=== PATIENT | male | born 1990 | race Two or more races ===

== ENCOUNTER 2024-04-06 14:47 | Inpatient (IN) | payer MEDICAID, OTHER ==
[~2024-04-06] VITALS: Ht 182.9 cm; Wt 117.7 kg
--- NOTE | 2024-04-06 15:50 | ED.PDOC ---
GI ASSESSMENT HPI Comments HPI: Poor Historian. 33-year-old male presents to the emergency department for evaluation of one-week history of rectal bleeding with normal stool color. Patient states this occurred after he ate some [place] soup. Patient states that the symptoms have been getting worse and now has abdominal pain. Patient complains of pain in his rectum with bowel movements with associated rectal bleeding. Patient then started developing nonspecific lower abdominal pain. Patient was on the toilet today and was having pain and as he was passing a bowel movement he has a syncopal episode without fall or trauma or injury. Patient has been feeling chills and cold. Patient was found with a fever here in the ED. Patient did not try any medications at home for his symptoms. This never happened before. Patient is otherwise healthy. Past Medcial History: Denies any Past Surgical History: Denies any REVIEW OF SYSTEMS: CONSTITUTIONAL: Denies acute: fever, diaphoresis, HEAD: Denies acute: headache, photophobia Eyes: Denies acute: Double vision, vision loss, eye pain, eye discharge. EARS: Denies acute: tinnitus, hearing loss, ear discharge, ear pain, THROAT: Denies acute: sore throat, swelling, difficulty swallowing , pain with swallowing, change in voice. NECK: Denies acute: neck pain, neck swelling, stiff neck. HEART: Denies acute : chest pain, palpitations, LUNGS: Denies acute: SOB, wheezing, cough, hemoptysis ABDOMEN: Denies acute: Nausea, Vomiting, diarrhea, melena , hematemesis, SKIN: Denies acute: rash, redness, lesions, itchiness. EXTREMITIES: Denies acute: calf pain, numbness, tingling, weakness, denies pain in extremity. Denies acute: Low back pain. Neuro: Denies acute: focal neurological deficit, motor or sensory focal neurological deficit, tremors, seizure like activity, confusion, dizziness, change in mental status, loss of bowel or bladder function, cauda equina like symptoms. : Denies acute: dysuria, hematuria, flank pain, increase in urinary frequency. PSYCH: Denies acute: hallucination, suicidal ideation, homicidal ideation. PHYSICAL EXAM: General: no acute distress, awake and alert. Head: normocephalic, atraumatic. Neck: supple, trachea is midline, no swelling. Throat: Normal phonation. Eyes:, no erythema, no purulent discharge, no proptosis, no icterus. Heart: regular tachycardic, no significant murmur appreciated. Lungs: no apparent respiratory distress, Able to speak in full sentences. No wheezing, no rhonchi, no crackles. No stridors Clear to auscultation bilaterally. Abdomen: Mild lower nonspecific abdominal tender to palpation, non distended, soft, no guarding, no rebound, + bowel sounds. Neuro: Awake, Alert, oriented to name, self, situation, follows commands GCS=15. Speech is normal. Skin: no petechia, no purpura, no cyanosis, non-pale, not jaundice. Lower extremities: --no - Pitting edema no deformity, no focal swelling, no calf TTP. Makes eye contact. moves all four extremities. Face: no apparent facial droop. Ambulating in the ED independently. Chief Complaint: GI Bleed Time Seen by MD: 15:21 Reviewed Notes: Nurses Notes, Medications, Allergies Allergies: Coded Allergies: NO KNOWN ALLERGIES (Unverified , 04/06/24) Home Meds Active Scripts Hydrocortisone Acetate (Anucort-Hc) 25 Mg Sup, 25 MG RE TID for 30 Days, #1 SUPP Prov:DON LEACH RESIDENT 04/09/24 Information Source: Patient Mode of Arrival: Ambulatory Was a procedure done? Was a procedure done?: No GI differential Dx Differential Diagnosis: Other (Diverticulitis, colitis, fistula, neoplasm, hemorrhoids, anal fissures, constipation, Crohn's disease, ulcerative colitis) X-Ray, Labs, Meds, VS Vital Signs Date Time Temp Pulse Resp B/P (MAP) Pulse Ox O2 Delivery O2 Flow Rate FiO2 04/06/24 20:32 100.1 04/06/24 20:23 104 17 96 Room Air* 0 21 04/06/24 20:23 100.1 104 17 126/68 (87) 96 100.1 04/06/24 15:39 101.0 121 21 109/81 (90) 96 Lab Test 04/06/24 15:54 Range/Units White Blood Count 12.5 H 4.4-10.8 10^3/uL Red Blood Count 5.21 4.5-5.90 10^6/uL Hemoglobin 15.5 13.5-17.5 g/dL Hematocrit 46.6 41.0-53.0 % Mean Corpuscular Volume 89.4 80.0-100.0 fL Mean Corpuscular Hemoglobin 29.7 28.0-32.0 pg Mean Corpuscular Hemoglobin Concent 33.2 32.0-36.0 g/dL Red Cell Distribution Width 13.4 11.8-14.3 % Platelet Count 269 140-450 10^3/uL Mean Platelet Volume 8.1 6.9-10.8 fL Neutrophils (%) (Auto) 83.5 H 37.0-80.0 % Lymphocytes (%) (Auto) 10.0 10.0-50.0 % Monocytes (%) (Auto) 4.9 0.0-12.0 % Eosinophils (%) (Auto) 1.3 0.0-7.0 % Basophils (%) (Auto) 0.3 0.0-2.0 % Neutrophils # (Auto) 10.4 H 1.6-8.6 10 ^3/uL Lymphocytes # (Auto) 1.2 0.4-5.4 10 ^3/uL Monocytes # (Auto) 0.6 0-1.3 10 ^3/uL Eosinophils # (Auto) 0.2 0-0.8 10 ^3/uL Basophils # (Auto) 0 0-0.2 10 ^3/uL Nucleated Red Blood Cells 0.2 % Sodium Level 138 136-145 mmol/L Potassium Level 3.9 3.5-5.1 mmol/L Chloride Level 108 H 98-107 mmol/L Carbon Dioxide Level 23 20-31 mmol/L Anion Gap 7 5-15 Blood Urea Nitrogen 10 9-23 mg/dL Creatinine 0.69 L 0.700-1.30 mg/dL Glomerular Filtration Rate Calc 125 >90 mL/min BUN/Creatinine Ratio 14.5 10.0-20.0 Serum Glucose 103 74-106 mg/dL Hemoglobin A1c 5.8 H <5.7 % A1C Lactic Acid Level 1.8 0.4-2.0 mmol/L Calcium Level 9.4 8.7-10.4 mg/dL Total Bilirubin 1.0 0.2-1.0 mg/dL Aspartate Amino Transferase (AST) 152 H 13-40 U/L Alanine Aminotransferase (ALT) 202 H 7-40 U/L Alkaline Phosphatase 157 H 46-116 U/L Troponin I High Sensitivity < 3 L </=54 ng/L Total Protein 7.4 5.7-8.2 g/dL Albumin 4.5 3.2-4.8 g/dL Lipase 24 12-53 U/L Thyroid Stimulating Hormone (TSH) 1.09 0.55-4.78 uIU/mL Hepatitis A Antibody Total Positive H Negative Hepatitis B Surface Antigen Negative Negative Hepatitis B Surface Antibody Positive H Negative Hepatitis B Core Total Antibody Negative Negative Hepatitis C Antibody Negative Negative Microbiology Date/Time Source Procedure Growth Status 04/06/24 15:54 Blood Blood Culture - Final NO GROWTH AFTER 5 DAYS OF INCUBATION. [facility] [address] [place] [address] Ph: [phone] DIAGNOSTIC IMAGING Diagnostic Imaging Report : [id number] Signed PATIENT: ROBERTO GAMBOA ACCT: [id number] UNIT: [id number] : 1990 LOC: ER ROOM / BED: / AGE / SEX: 33 / M ADM STATUS: REG ER SERVICE 1540 ORDERING PHYSICIAN: GAVINO RAE DO PROCEDURE(s): ABPL - CT AB PEL WO CON-NO ORAL OR IV REASON: fever/abd pain/rectal bleed ORDER NUMBER(s): [id number], ACCESSION NUMBER(s): [id number] Exam: CT CT AB PEL WO CON-NO ORAL OR IV History: fever/abd pain/rectal bleed Comparison Study: None Technique: Multidetector spiral CT of the abdomen and pelvis was performed from lung bases to pubic symphysis. Imaging was performed without IV contrast. Axial, coronal and sagittal multiplanar reformats were obtained from the axial data set by the technologist. Radiation dose : Abdomen/Pelvis: CTDIvol 23.87 mGy, DLP 1685.38 mGy*cm. Findings: Evaluation of solid organs is limited due to lack of intravenous contrast use. Lung Bases: No acute or significant lung base finding. Normal heart size. No pleural or pericardial effusion. Liver: The liver is normal in size. No focal lesions. Gallbladder and biliary Tree: Unremarkable Spleen: Unremarkable Pancreas: The pancreas is grossly normal in appearance. Adrenal Glands: Unremarkable Kidneys: Kidneys are grossly normal without calculi or hydronephrosis. Bladder: Grossly unremarkable for degree of distention. Bowel: The stomach is grossly normal in appearance. Small bowel and colon are normal in caliber and distribution. Normal appendix is visualized in the right lower quadrant without findings of appendicitis. Ascites: Absent Lymphadenopathy: No mesenteric, retroperitoneal or periportal lymphadenopathy. Abdominal wall and Mesentery: Unremarkable. Vasculature: The visualized abdominal aorta is normal in size and caliber. Evaluation of abdominal and pelvic vessels is limited due to lack of intravenous contrast. Pelvic Organs: Unremarkable Musculoskeletal: No aggressive focal bony lesions, acute fractures or dislocation. IMPRESSION: 1. No acute abdominal or pelvic findings. Radiation optimization: All CT scans at this facility use at least one of these dose optimization techniques: Automated exposure control mA and/or kV adjustment per patient size (includes targeted exams where dose is matched to clinical indication) or iterative reconstruction. HS:Y ATED BY: VICTOR M WHITE MD DICTATED DATE/TIME: 04/06/241636 SIGNED BY: VICTOR M WHITE MD SIGNED DATE/TIME: 04/06/241636 CC: [place] [address] Ph: [phone] DIAGNOSTIC IMAGING Diagnostic Imaging Report : [id number] Signed PATIENT: ROBERTO GAMBOA ACCT: [id number] UNIT: [id number] : 1990 LOC: OVERFLOW ROOM / BED: [address] [place] [address] / AGE / SEX: 33 / M ADM STATUS: ADM IN SERVICE 49 ORDERING PHYSICIAN: JAKE MORLEY RESIDENT PROCEDURE(s): CXRP - CHEST PORTABLE REASON: chest pain ORDER NUMBER(s): [id number], ACCESSION NUMBER(s): [id number] EXAM: XY CHEST PORTABLE CLINICAL HISTORY: chest pain TECHNIQUE: Single AP view of the chest WID: COMPARISON: None FINDINGS: Lines and tubes: None Chest: The heart size and pulmonary vasculature is within normal limits. No pleural effusion, pneumothorax, or consolidation. The osseous structures are grossly intact. IMPRESSION: No acute cardiopulmonary abnormality. ATED BY: BREANA GODOY MD DICTATED DATE/TIME: 04/07/24 0210 SIGNED BY: BREANA GODOY MD SIGNED DATE/TIME: 04/07/24 0210 CC: Time of 1ST Reevaluation: 17:00 Reevaluation 1ST: Unchanged Patient Education/Counseling: Diagnosis, Treatment Family Education/Counseling: No Family Present Comments Patient presented with the above HPI.--rectal bleeding----workup was initiated. patient was found with the above mentioned diagnosis. Patient was given: Fluids, Protonix, Flagyl, Tylenol Patient ED course and VS have been stabilized. Patient has been reassessed in the ED and remained in a stable condition. Pertinent incidental findings were discussed with the patient and/or family. Patient/family voices understanding and is agreeable with plan. Patient has been observed in the ED adequate length of time to insure improvement/stability. patient was admitted to the medicine team for further evaluation and treatment of their presentation. All the reports of any imaging studies that were ordered by myself were reviewed by myself. Departure 1 Departure Time of Disposition: 17:01 Impression: Primary Impression: Hematochezia Additional Impressions: Elevated LFTs Fever Disposition: ADMITTED INPATIENT Admit to: Tele Condition: Guarded e-Prescriptions Hydrocortisone Acetate (Anucort-Hc) 25 Mg Sup 25 MG RE TID for 30 Days, #1 SUPP Prov: DON LEACH RESIDENT 04/09/24 Discharged With: Self Critical Care Note Critical Care Time?: Yes (35 min-critical care time only) GAVINO RAE DO Apr 06, 2024 15:50
[2024-04-06 16:17] LABS: Hemoglobin 15.5 g/dL (13.5-17.5); Mean Corpuscular Hemoglobin 29.7 pg (28.0-32.0); Red Cell Distribution Width 13.4 % (11.8-14.3); White Blood Cell 12.5 10^3/uL (4.4-10.8)
[2024-04-06 16:25] LABS: Basophils # (auto) 0 10 ^3/uL (0-0.2); Basophils % (auto) 0.3 % (0.0-2.0); Eosinophils # (auto) 0.2 10 ^3/uL (0-0.8); Eosinophils % (auto) 1.3 % (0.0-7.0); Hematocrit 46.6 % (41.0-53.0); Lymphocytes # (auto) 1.2 10 ^3/uL (0.4-5.4); Mean Corpuscular Hgb Conc. 33.2 g/dL (32.0-36.0); Mean Corpuscular Volume 89.4 fL (80.0-100.0); Monocytes # (auto) 0.6 10 ^3/uL (0-1.3); Monocytes % (auto) 4.9 % (0.0-12.0); Neutrophils # (auto) 10.4 10 ^3/uL (1.6-8.6); Neutrophils % (auto) 83.5 % (37.0-80.0); Nucleated Red Blood Cells % 0.2 %; Platelet Count (auto) 269 10^3/uL (140-450); Red Blood Cells 5.21 10^6/uL (4.5-5.90)
[2024-04-06 16:34] LABS: Alanine Aminotransferase 202 U/L (7-40); Albumin 4.5 g/dL (3.2-4.8); Alkaline Phosphatase 157 U/L (46-116); Anion Gap 7 (5-15); Aspartate Aminotransferase 152 U/L (13-40); BUN/Creatinine Ratio 14.5 (10.0-20.0); Blood Urea Nitrogen 10 mg/dL (9-23); Calcium 9.4 mg/dL (8.7-10.4); Carbon Dioxide 23 mmol/L (20-31); Chloride 108 mmol/L (98-107); Glucose 103 mg/dL (74-106); Lipase 24 U/L (12-53); Potassium 3.9 mmol/L (3.5-5.1); Sodium 138 mmol/L (136-145); Total Protein 7.4 g/dL (5.7-8.2)
--- NOTE | 2024-04-06 16:39 | DVH ---
Exam: CT CT AB PEL WO CON-NO ORAL OR IV History: fever/abd pain/rectal bleed Comparison Study: None Technique: Multidetector spiral CT of the abdomen and pelvis was performed from lung bases to pubic symphysis. Imaging was performed without IV contrast. Axial, coronal and sagittal multiplanar reform ats were obtained from the axial data set by the technologist. Radiation dose : Abdomen/Pelvis: CTDIvol 23.87 mGy, DLP 1685.38 mGy*cm. Findings: Evaluation of solid organs is limited due to lack of intravenous contrast use. Lung Bases: No acute or significant lung base finding. Normal heart size. No pleural or pericardial effusion. Liver: The liver is normal in size. No focal lesions. Gallbladder and biliary Tree: Unremarkable Spleen: Unremarkable Pancreas: The pancreas is grossly normal in appearance. Adrenal Glands: Unremarkable Kidneys: Kidneys are grossly normal without calculi or hydronephrosis. Bladder: Grossly unremarkable for degree of distention. Bowel: The stomach is grossly normal in appearance. Small bowel and colon are normal in caliber and d istribution. Normal appendix is visualized in the right lower quadrant without findings of appendici tis. Ascites: Absent Lymphadenopathy: No mesenteric, retroperitoneal or periportal lymphadenopathy. Abdominal wall and Mesentery: Unremarkable. Vasculature: The visualized abdominal aorta is normal in size and caliber. Evaluation of abdominal a nd pelvic vessels is limited due to lack of intravenous contrast. Pelvic Organs: Unremarkable Musculoskeletal: No aggressive focal bony lesions, acute fractures or dislocation. IMPRESSION: 1. No acute abdominal or pelvic findings. Radiation optimization: All CT scans at this facility use at least one of these dose optimization lorene hniques: Automated exposure control mA and/or kV adjustment per patient size (includes targeted exams where dose is matched to clinical indication) or iterative reconstruction. HS:Y
[2024-04-06 20:23] VITALS: PULSE 104; RESP 17; O2SAT 96
[2024-04-06] MEDS: PANTOPRAZOLE 40 MG/10 ML VIAL INJ IV ONE (20:32)
[2024-04-06] MEDS: SODIUM CHLORIDE 0.9% 1,000 ML IV ONE (20:32)
[2024-04-06] MEDS: ACETAMINOPHEN 325 MG TAB PO ONE (20:32)
[2024-04-06] MEDS: metroNIDAZOLE 500MG/100ML 100 ML IV ONE (20:33)
[2024-04-06] MEDS ORDERED: NITROGLYCERIN 0.4 MG SL TAB SL PRN (21:30)
[2024-04-06] MEDS ORDERED: ACETAMINOPHEN 325 MG TAB PO PRN (21:30)
[2024-04-06] MEDS ORDERED: HYDROcodone-ACET 5/325MG TAB PO PRN (21:30)
[2024-04-06] MEDS ORDERED: MORPHINE SULFATE INJ 2 MG/ml SYRG IV PRN (21:30)
--- NOTE | 2024-04-06 21:37 | DVHHPRES ---
History of Present Illness Resident Creating Document: JKAE MORLEY RESIDENT History of Present Illness This is a 33 years old male with no significant past medical history presented to the ED with a chief complaint of abdominal pain, rectal bleeding and 1 episodes of passing out prior to this admission. According to the patient he was having right lower quadrant abdominal pain which is colicky in nature radiate to the left lower quadrant with no aggravating or relieving factors and associated with nausea. He also mentioned 1 episodes of bright red blood without mixing with the stool, anal pain and fainting due to the pain. He mentioned colon cancer runs in the family and he had the colonoscopy at 7 years of old but he did not remember about the findings. He denies chest pain, dizziness, shortness of breath, diaphoresis, nausea, vomiting or any change in bowel and bladder habit. Past Medical History No significant past medical history. Past Surgical History: None Family History Colon cancer runs in the family Past Social History Vapes, heavy drinker stopped 2 years ago and history of polysubstance abuse. Review of Systems Constitutional: No: Fever, Chills, Sweats, Weakness, Malaise, Other Eyes: No: Pain, Vision change, Conjunctivae inflammation, Eyelid inflammation, Other, Redness ENT: No: Ear pain, Ear discharge, Nose pain, Nose discharge, Nose congestion, Mouth pain, Mouth swelling, Throat pain, Throat swelling, Other Respiratory: No: Cough, Dry, Shortness of breath, SOB with excertion, Wheezing, Hemoptysis, Pleuritic Pain, Sputum, Wheezing, Other Cardiovascular: No: Chest Pain, Palpitations, Orthopnea, Paroxysmal Noc. Dyspnea, Edema, Lt Headedness, Other Gastrointestinal: Abdominal Pain, Hematochezia; No: Nausea, Vomiting, Diarrhea, Constipation, Melena, Other Genitourinary: No Dysuria, No Frequency, No Incontinence, No Hematuria, No Retention, No Other Musculoskeletal: No: other, neck pain, shoulder pain, arm pain, back pain, hand pain, leg pain, foot pain Skin: No: Rash, Lesions, Jaundice, Bruising, Other Neurological: No: Weakness, Numbness, Incoordination, Change in speech, Confusion, Seizures, Other Allergies: Coded Allergies: NO KNOWN ALLERGIES (Unverified , 04/06/24) Medications Current Medications Medications Dose Ordered Sig/Mike Route Start Time Stop Time Status Last Admin Dose Admin Sodium Chloride 10 ml Q8HR IV 04/06/24 22:00 UNV Sodium Chloride 1,000 ml @ 120 mls/hr Q8H20M IV 04/06/24 21:30 UNV Acetaminophen 325 mg Q4HP PRN PO 04/06/24 21:30 UNV Acetaminophen/ Hydrocodone Bitart 1 tab Q4HP PRN PO 04/06/24 21:30 UNV Nitroglycerin 0.4 mg Q5MINP PRN SL 04/06/24 21:30 UNV Morphine Sulfate 2 mg Q30M PRN IV 04/06/24 21:30 UNV Exam Vital Signs Vital Signs Date Time Temp Pulse Resp B/P (MAP) Pulse Ox O2 Delivery O2 Flow Rate FiO2 04/06/24 20:32 100.1 04/06/24 20:23 104 17 96 Room Air* 0 21 04/06/24 20:23 126/68 (87) General Appearance: Alert, Oriented X3, Cooperative, mild distress HEENT: Atraumatic, PERRLA, EOMI, Mucous membr. moist/pink Respiratory: Clear to auscultation, Normal air movement Cardiovascular: Regular rate, Normal S1, Normal S2, No murmurs Abdominal: Normal bowel sounds, Soft, No tenderness, No hepatospenomegaly, No masses Extremities: No clubbing, No cyanosis, No edema, Normal pulses, No tenderness/swelling Skin: No rashes, No breakdown, No significant lesion Neuro: Normal gait, Normal speech, Strength at 5/5 X4 ext, Normal tone, Sensation intact, Other (grossly intact cranial nerves) Psych/Mental Status: Mental status NL, Mood NL Labs/Xrays Labs Test 04/06/24 15:54 Range/Units White Blood Count 12.5 H 4.4-10.8 10^3/uL Red Blood Count 5.21 4.5-5.90 10^6/uL Hemoglobin 15.5 13.5-17.5 g/dL Hematocrit 46.6 41.0-53.0 % Mean Corpuscular Volume 89.4 80.0-100.0 fL Mean Corpuscular Hemoglobin 29.7 28.0-32.0 pg Mean Corpuscular Hemoglobin Concent 33.2 32.0-36.0 g/dL Red Cell Distribution Width 13.4 11.8-14.3 % Platelet Count 269 140-450 10^3/uL Mean Platelet Volume 8.1 6.9-10.8 fL Neutrophils (%) (Auto) 83.5 H 37.0-80.0 % Lymphocytes (%) (Auto) 10.0 10.0-50.0 % Monocytes (%) (Auto) 4.9 0.0-12.0 % Eosinophils (%) (Auto) 1.3 0.0-7.0 % Basophils (%) (Auto) 0.3 0.0-2.0 % Neutrophils # (Auto) 10.4 H 1.6-8.6 10 ^3/uL Lymphocytes # (Auto) 1.2 0.4-5.4 10 ^3/uL Monocytes # (Auto) 0.6 0-1.3 10 ^3/uL Eosinophils # (Auto) 0.2 0-0.8 10 ^3/uL Basophils # (Auto) 0 0-0.2 10 ^3/uL Nucleated Red Blood Cells 0.2 % Sodium Level 138 136-145 mmol/L Potassium Level 3.9 3.5-5.1 mmol/L Chloride Level 108 H 98-107 mmol/L Carbon Dioxide Level 23 20-31 mmol/L Anion Gap 7 5-15 Blood Urea Nitrogen 10 9-23 mg/dL Creatinine 0.69 L 0.700-1.30 mg/dL Glomerular Filtration Rate Calc 125 >90 mL/min BUN/Creatinine Ratio 14.5 10.0-20.0 Serum Glucose 103 74-106 mg/dL Lactic Acid Level 1.8 0.4-2.0 mmol/L Calcium Level 9.4 8.7-10.4 mg/dL Total Bilirubin 1.0 0.2-1.0 mg/dL Aspartate Amino Transferase (AST) 152 H 13-40 U/L Alanine Aminotransferase (ALT) 202 H 7-40 U/L Alkaline Phosphatase 157 H 46-116 U/L Troponin I High Sensitivity < 3 L </=54 ng/L Total Protein 7.4 5.7-8.2 g/dL Albumin 4.5 3.2-4.8 g/dL Lipase 24 12-53 U/L Assessment/Plan Assessment/Plan Assessment and plan: # Rectal bleeding, rule out colon cancer - Colon cancer runs in the family - H/H is stable now - Patient is on clear liquid diet - IV Protonix 40 mg b.i.d. - Pending D/R/E - IV normal saline at 120 mL/hour - Ordered CEA and consulted GI # Possible colitis - CBC revealed leukocytosis with left shift - CT abdomen pelvis demonstrated no acute intra-abdominal condition. - Started IV ceftriaxone 1 g daily and IV metronidazole 500 mg 8 hourly # Transaminitis without hyperbilirubinemia likely due to alcohol abuse - Monitor CMP # Prediabetes, hemoglobin A1c 5.8 - consult patient regarding healthy low carb diet, lifestyle modification and physical exercise Goal of care discussed with the patient for more than 23 minutes full code Plan of treatment discussed with Dr. Lira Plan discussed with: Patient, Other My Orders Orders - JAKE MORLEY RESIDENT Procedure Category Date Status Time Admit ADMIT 04/06/24 Transmitted 21:17 Allergies AMAN 04/06/24 In Process 21:17 Code Status CODE 04/06/24 Transmitted 21:17 Sodium Chloride Lock PHA 04/06/24 Logged (Saline Lock Ns) 22:00 Sodium Chloride 0.9% PHA 04/06/24 Logged 21:30 Acetaminophen Tablet PHA 04/06/24 Logged (Tylenol Tablet) 21:30 Hydrocodone-Acet PHA 04/06/24 Logged 5/325mg Tab ([place] 21:30 Complete Blood Count LAB 04/07/24 Verified 04:00 Comprehensive LAB 04/07/24 Verified Metabolic Panel 04:00 Npo (Nothing By DIET 04/07/24 Transmitted Mouth) Diet Breakfast Nitroglycerin PHA 04/06/24 Logged Sublingual (Ntrostat 21:30 Morphine Sulfate PHA 04/06/24 Logged Injection 21:30 Oxygen By Nasal RT 04/06/24 Transmitted Cannula 21:17 Stat Ekg For Chest AMAN 04/06/24 In Process Pain 21:17 Notify Md Of Changes AMAN 04/06/24 In Process From Base 21:17 Apron Man For AMAN 04/06/24 In Process 24 Hours 21:17 Emergency Dysrhythmia AMAN 04/06/24 In Process Protocol 21:17 Rhythm Strips Once AMAN 04/06/24 In Process Every Shift 21:17 Comprehensive LAB 04/06/24 In Process Hepatitis Panel 21:17 Drug Screen LAB 04/06/24 Logged 21:17 Hemoglobin A1c LAB 04/06/24 In Process 21:17 Thyroid Stimulating LAB 04/06/24 In Process Hormone 21:17 * Gi Dvh Production Sampler CONS 04/06/24 Transmitted 21:17 PTPTT LAB 04/06/24 Verified 21:32 Pantoprazole PHA 04/06/24 Verified (Protonix) 22:00 Urinalysis LAB 04/06/24 Verified 21:32 Date of Service: Apr 06, 2024 Billing Provider: DEISY LIRA MD Common Visit Codes: 75470-[id number] INP/OBS CARE (HIGH) JAKE MORLEY RESIDENT Apr 06, 2024 21:37 DEISY LIRA MD Apr 07, 2024 15:52
[2024-04-06] MEDS: SODIUM CHLOR 0.9% PF (SALINE LOCK) 10ML VIAL/SYR IV SCH (22:00)
[2024-04-06 22:19] LABS: INR 1.12 (0.9-1.15); Partial Thromboplastin Time 27.9 SEC (24.5-34.5); Prothrombin Time 11.8 sec (9.3-11.8)
[2024-04-06] MEDS: SODIUM CHLORIDE 0.9% 1,000 ML IV SCH (23:41)
[2024-04-07] VITALS (7 sets, daily range): BP systolic 97–123; BP diastolic 51–79; PULSE 60–95; RESP 18–19; TEMP 98–99.1; O2SAT 90–97
[2024-04-07] MEDS: ONDANSETRON HCL 4 MG/2 ML VIAL IV PRN (00:26)
[2024-04-07] MEDS: MORPHINE SULFATE INJ 2 MG/ml SYRG IV PRN (00:27)
[2024-04-07 01:13] LABS: Urine Bacteria None Seen /hpf (None Seen)
[2024-04-07] MEDS ORDERED: metroNIDAZOLE 500MG/100ML 100 ML IV ONE (01:45)
[2024-04-07] MEDS: cefTRIAXone 1GM/50ML D5W 50 ML IV ONE (01:54)
[2024-04-07 01:59] LABS: Amphetamine Screen, Urine Neg (NEGATIVE); Barbiturate Scree,Urine Neg (NEGATIVE); Benzodiazephine Screen, Urine Neg (NEGATIVE); Cannabinoid Screen, Urine Neg (NEGATIVE); Cocaine Screen, Urine Neg (NEGATIVE); Opiate Scree,Urine Neg (NEGATIVE); Phencyclidine Screen, Urine Neg (NEGATIVE)
--- NOTE | 2024-04-07 02:12 | DVH ---
EXAM: XY CHEST PORTABLE CLINICAL HISTORY: chest pain TECHNIQUE: Single AP view of the chest WID: COMPARISON: None FINDINGS: Lines and tubes: None Chest: The heart size and pulmonary vasculature is within normal limits. No pleural effusion, pneumothorax, or consolidation. The osseous structures are grossly intact. IMPRESSION: No acute cardiopulmonary abnormality.
[2024-04-07 02:19] LABS: Urine Blood Negative /uL (Negative); Urine Clarity Turbid (Clear); Urine Color Yellow (Yellow); Urine Mucus MANY (None Seen); Urine Protein, UAD TRACE (Negative); Urine Specific Gravity 1.027 (1.001-1.035); Urine Urobilinogen 2 mg/dL (Negative); Urine WBC 4 /hpf (0 - 3)
[2024-04-07] MEDS: metroNIDAZOLE 500MG/100ML 100 ML IV SCH (05:49)
[2024-04-07 07:06] LABS: Basophils # (auto) 0 10 ^3/uL (0-0.2); Basophils % (auto) 0.4 % (0.0-2.0); Eosinophils # (auto) 0.1 10 ^3/uL (0-0.8); Eosinophils % (auto) 1.3 % (0.0-7.0); Hematocrit 39.8 % (41.0-53.0); Hemoglobin 13.7 g/dL (13.5-17.5); Lymphocytes % (auto) 13.6 % (10.0-50.0); Mean Corpuscular Hemoglobin 30.5 pg (28.0-32.0); Mean Corpuscular Hgb Conc. 34.3 g/dL (32.0-36.0); Mean Corpuscular Volume 89.1 fL (80.0-100.0); Monocytes # (auto) 0.6 10 ^3/uL (0-1.3); Monocytes % (auto) 7.3 % (0.0-12.0); Neutrophils # (auto) 5.9 10 ^3/uL (1.6-8.6); Neutrophils % (auto) 77.4 % (37.0-80.0); Platelet Count (auto) 220 10^3/uL (140-450); Red Blood Cells 4.47 10^6/uL (4.5-5.90); Red Cell Distribution Width 13.4 % (11.8-14.3); White Blood Cell 7.7 10^3/uL (4.4-10.8)
[2024-04-07 07:34] LABS: Alanine Aminotransferase 147 U/L (7-40); Albumin 3.8 g/dL (3.2-4.8); Alkaline Phosphatase 125 U/L (46-116); Anion Gap 7 (5-15); Aspartate Aminotransferase 102 U/L (13-40); BUN/Creatinine Ratio 14.3 (10.0-20.0); Blood Urea Nitrogen 10 mg/dL (9-23); Calcium 8.9 mg/dL (8.7-10.4); Carbon Dioxide 24 mmol/L (20-31); Chloride 107 mmol/L (98-107); Glucose 106 mg/dL (74-106); Potassium 3.6 mmol/L (3.5-5.1); Sodium 138 mmol/L (136-145)
[2024-04-07 07:35] LABS: Bilirubin, Total 1.2 mg/dL (0.2-1.0); Total Protein 6.6 g/dL (5.7-8.2)
[2024-04-07] MEDS: PANTOPRAZOLE 40 MG/10 ML VIAL INJ IV SCH (09:33)
[2024-04-07] MEDS: SODIUM CHLORIDE 0.9% 500 ML IV ONE (10:30)
[2024-04-07] MEDS: cefTRIAXone 1GM/50ML D5W 50 ML IV SCH (11:13)
[2024-04-07] MEDS: POTASSIUM EFFERVESENT TAB 25 MEQ PO ONE (11:14)
--- NOTE | 2024-04-07 11:30 | DVHPNRES ---
Progress Note Date Seen: Apr 07, 2024 Resident Creating Document: DON LEACH RESIDENT Medical Necessity Reason Pt with a Central, PICC or Fol: No Subjective Review of Systems This is a 33-year-old male patient with no reported past medical history who presented to the ER with a chief complaint of abdominal pain and rectal bleeding for the past 1.5 weeks. Patient reports right lower quadrant abdominal pain and burning which with the age to the back, is on and off and ongoing for the past 10 days associated with dyschezia/fever/chills/sweats/shaking/lightheadedness. He also says that he has been experiencing fresh red bleeding per rectum for around the past week, every time he goes to the bathroom. He has a bowel movement once every day which is formed, not loose. Reports blood in the bowel movements during the start and time-out. Denies melena/nausea/vomiting/weight loss/loss of appetite. Last reported bowel movement was around 8:00 a.m. 04/06, which was also full of fresh blood. Patient also reported that he experienced loss of consciousness for about a minute or 04/06 when he was undergoing a bowel movement, denies hitting his head or experiencing any falls. He had a colonoscopy at the age of 7 years which showed some polyps but he does not remember the details. Patient has not seen a physician since 2007 Past medical and surgical history: Unremarkable Family history Colon cancer in his brother at the age of 31 year, colon cancer also in his uncle Allergic history None Social history Ex-smoker, quit 4 months back-smoked a pack a day for the past 10 years. Currently patient vapes. Reports being a heavy drinker, has been sober for the past 2 years Reports substance use back in 2007 Lives with Does not have a PCP. Patient seen and examined at bedside. Seen having clear liquid diet. Rectal exam performed, patient had lot of tenderness, no hemorrhoids seen or felt, no active bleeding. No masses or prostatomegaly. GI consulted, colonoscopy scheduled for tomorrow. Objective vital signs Vital Sign Date Time Temp Pulse Resp B/P (MAP) Pulse Ox O2 Delivery O2 Flow Rate FiO2 04/07/24 08:46 98.6 94 19 99/60 (73) 96 98.6 04/07/24 08:12 Room Air* 0 21 Total Intake and Output 1004/06/24 04/07/24 15:00 23:00 07:00 Intake Total 1100 ml 1120 ml Output Total 680 ml Balance 1100 ml 440 ml medications Current Medications Medications Dose Ordered Sig/Mike Route Start Time Stop Time Status Last Admin Dose Admin Sodium Chloride 10 ml Q8HR IV 04/06/24 22:00 04/07/24 05:49 10 ML Acetaminophen 325 mg Q4HP PRN PO 04/06/24 21:30 Acetaminophen/ Hydrocodone Bitart 1 tab Q4HP PRN PO 04/06/24 21:30 Pantoprazole Sodium 40 mg BID IV 04/07/24 10:00 04/07/24 09:33 40 MG Morphine Sulfate 1 mg Q4HP PRN IV 04/07/24 00:15 04/07/24 00:27 1 MG Ondansetron HCl 4 mg Q8HPRN PRN IV 04/07/24 00:15 04/07/24 00:26 4 MG Metronidazole 100 ml @ 100 mls/hr Q8HR IV 04/07/24 06:00 04/07/24 05:49 100 MLS/HR Ceftriaxone Sodium 50 ml @ 100 mls/hr DAILY IV 04/07/24 10:00 04/07/24 11:13 100 MLS/HR Examination Young obese male patient lying in bed, in no acute distress General: Obese, afebrile, palor, mucosae are moist Cardiovascular: Regular S1 and S2. No murmurs, gallops or rubs. No JVD elevation. No pedal edema Respiratory: Normal B/L air entry on room air. Clear lung sounds on auscultation Abdomen: Soft, nontender, nondistended, normoactive bowel sounds, no rebound tenderness, no organomegaly, no masses. Buttocks punctate erythematous points. Rectal exam performed, patient had lot of tenderness, no hemorrhoids seen or felt, no active bleeding. No masses or prostatomegaly. Genitourinary: Deferred MSK/skin: Mobilizes 4 limbs. Skin is dry and warm Neurological: No motor, no sensitive deficits, normal speech. Pupils are isocoric and reactive. Psych/Mental Status: A/Ox4 laboratory and microbiology Laboratory Tests 04/07/24 06:20 Test 04/07/24 06:20 Range/Units Serum Glucose 106 74-106 mg/dL Labs and/or images reviewed: Labs reviewed by me, Image(s) reviewed by me Problem List/Assessment/Plan Problem List/Assessment/Plan Sepsis secondary to Hematochezia ? Rule out diverticulitis versus mass First-degree relative has colon cancer at the age of 30s Rectal exam performed, patient had lot of tenderness, no hemorrhoids seen or felt, no active bleeding. No masses or prostatomegaly. GI consulted - scheduled for colonoscopy 04/08/2024, currently on bowel prep IV ceftriaxone and metronidazole starting 04/07 IV Protonix 40 mg b.i.d., clear liquid diet CEA level pending, stool occult positive Lactic acid 1.8 Prelim blood culture negative for growth CT abdomen completed, shows no acute abdominal or pelvic finding Presyncope Head CT unremarkable for acute intracranial process Orthostatic vital pending Transaminitis secondary to hepatic steatosis - history of heavy alcohol use AST/AST trending down Prediabetes - hemoglobin A1c 5.8 Counseled regarding healthy lifestyle habits for more than 22 minutes. Vitamin-D deficiency Supplemented Chronic alcoholic and nicotine dependence Counseled regarding cessation of vaping and continuing alcoholic cessation for more than 20 minutes History of polysubstance use Counseled regarding cessation for more than 20 minute Plan discussed with patient, in which all questions have been answered Goals of care discussed for more than 25 minutes, full code status. Case discussed with Dr. Lira. Colonoscopy scheduled for tomorrow. Continue bowel prep. Plan discussed with: Patient My Orders My Orders Orders - DON LEACH Procedure Category Date Status Time Ceftriaxone 1gm/50ml PHA 04/07/24 In Process D5w (Rocephin) 10:00 Covid19 Antigen [facility] 04/07/24 Logged Vitamin D, 25-Hydroxy LAB 04/07/24 In Process 09:52 Stool [facility] 04/07/24 Logged 10:21 Date of Service: Apr 07, 2024 Billing Provider: DEISY LIRA MD Common Visit Codes: [id number] INP/OBS CARE(HIGH) DON LEACH Apr 07, 2024 11:30 DEISY LIRA MD Apr 08, 2024 09:38
--- NOTE | 2024-04-07 11:40 | DVH ---
EXAM: CT HEAD WITHOUT CONTRAST HISTORY: syncope COMPARISON: None TECHNIQUE: Axial images were obtained and reformatted in coronal and sagittal planes. All CT scans at this medical facility are performed using dose modulation techniques as appropriate t o a performed exam including the following: Automated exposure control was utilized; adjustment of th e MA and/or KV according to patient size; and use of iterative reconstruction technique. CT Dose: CTDI volume is 63.24 mGy. Dose-length product is 1139.96 mGy*cm FINDINGS: There is no evidence of acute intracranial hemorrhage, mass, mass effect midline shift. There is no h ydrocephalus or extra-axial fluid collection. Dow white matter diffeerentiation appears appropriate. The visualized paranasal sinuses and mastoid air cells are clear. The calvarium is intact. IMPRESSION: 1. No acute intracranial process. HS:Y
[2024-04-07] MEDS: GOLYTELY 4L KIT PO ONE (12:15)
--- NOTE | 2024-04-07 12:23 | DVHINCON2 ---
GI Consult Consult Note GI consult note Date of Consultation: 04/07/2024 Chief Complaint: Rectal bleeding Referring Physician: Horacio LOUIS H&P: 33-year-old male admitted with red blood rectally with bowel movements for two weeks, patient has brown stool. Patient complaining of lower right side abdominal pain before bowel movement. Also has rectal pain with bowel movement. Patient's symptoms worsened one day after eating [place] food . no weight loss. No nausea or vomiting . No colonoscopy in past Patient has family history of colon cancer, brother diagnosed with colon cancer at age 31 Past Medical History: Denies Past Surgical History: Denies Social History: Ex-smoker, quit 4 months back-smoked a pack a day for the past 10 years. Currently patient vapes. Reports being a heavy drinker, has been sober for the past 2 years Reports substance use back in 2007 Lives with Family History: Brother: Cancer Review of Systems: Constitutional: no fever, chill, weight loss HEENT: no eye pain, no hearing loss, no oral lesion, no scleral icterus Heart: no chest pain, no chest pressure Lung: no cough, no dyspnea with exertion Abdomen: see HPI Physical exam: General: NAD, AAOX3 Chest: lung stewart clear to auscultation Heart: RRR, no murmur Abdomen: non-distended, no tenderness to palpation, +BS Labs: Labs Test 04/07/24 10:24 04/07/24 06:20 04/07/24 01:12 04/06/24 21:44 Range/Units Stool Occult Blood Positive Negative Stool Occult Blood Sample #3 Negative White Blood Count 7.7 # 4.4-10.8 10^3/uL Red Blood Count 4.47 L 4.5-5.90 10^6/uL Hemoglobin 13.7 13.5-17.5 g/dL Hematocrit 39.8 #L 41.0-53.0 % Mean Corpuscular Volume 89.1 80.0-100.0 fL Mean Corpuscular Hemoglobin 30.5 28.0-32.0 pg Mean Corpuscular Hemoglobin Concent 34.3 32.0-36.0 g/dL Red Cell Distribution Width 13.4 11.8-14.3 % Platelet Count 220 140-450 10^3/uL Mean Platelet Volume 7.9 6.9-10.8 fL Neutrophils (%) (Auto) 77.4 37.0-80.0 % Lymphocytes (%) (Auto) 13.6 10.0-50.0 % Monocytes (%) (Auto) 7.3 0.0-12.0 % Eosinophils (%) (Auto) 1.3 0.0-7.0 % Basophils (%) (Auto) 0.4 0.0-2.0 % Neutrophils # (Auto) 5.9 1.6-8.6 10 ^3/uL Lymphocytes # (Auto) 1.0 0.4-5.4 10 ^3/uL Monocytes # (Auto) 0.6 0-1.3 10 ^3/uL Eosinophils # (Auto) 0.1 0-0.8 10 ^3/uL Basophils # (Auto) 0 0-0.2 10 ^3/uL Nucleated Red Blood Cells 0.0 % Sodium Level 138 136-145 mmol/L Potassium Level 3.6 3.5-5.1 mmol/L Chloride Level 107 98-107 mmol/L Carbon Dioxide Level 24 20-31 mmol/L Anion Gap 7 5-15 Blood Urea Nitrogen 10 9-23 mg/dL Creatinine 0.70 0.700-1.30 mg/dL Glomerular Filtration Rate Calc 125 >90 mL/min BUN/Creatinine Ratio 14.3 10.0-20.0 Serum Glucose 106 74-106 mg/dL Calcium Level 8.9 8.7-10.4 mg/dL Magnesium Level 1.9 1.6-2.6 mg/dL Total Bilirubin 1.2 H 0.2-1.0 mg/dL Aspartate Amino Transferase (AST) 102 H 13-40 U/L Alanine Aminotransferase (ALT) 147 H 7-40 U/L Alkaline Phosphatase 125 H 46-116 U/L Total Protein 6.6 5.7-8.2 g/dL Albumin 3.8 3.2-4.8 g/dL Carcinoembryonic Antigen < 0.50 <=5.0 ng/mL Vitamin B12 Level 461 211-911 pg/mL HIV (1&2) Antibody Negative Negative Urine Color Yellow Yellow Urine Clarity Turbid H Clear Urine pH 6.0 5.0-9.0 Urine Specific [place] 1.027 1.001-1.035 Urine Protein Trace H Negative Urine Ketones Negative Negative Urine Blood Negative Negative /uL Urine Nitrite Negative Negative Urine Bilirubin Negative Negative Urine Urobilinogen 2 H Negative mg/dL Urine Leukocyte Esterase Negative Negative /uL Urine RBC 1 0 - 3 /hpf Urine WBC 4 0 - 3 /hpf Urine Squamous Epithelial Cells None seen <5 /hpf Urine Bacteria None seen None Seen /hpf Urine Mucus Many None Seen Urine Glucose Normal Normal mg/dL Urine Opiates Screen Neg NEGATIVE Urine Fentanyl Screen Neg NEGATIVE Urine Barbiturates Screen Neg NEGATIVE Urine Phencyclidine Screen Neg NEGATIVE Urine Amphetamines Screen Neg NEGATIVE Urine Benzodiazepines Screen Neg NEGATIVE Urine Cocaine Screen Neg NEGATIVE Urine Cannabinoids Screen Neg NEGATIVE Prothrombin Time 11.8 9.3-11.8 sec Prothrombin Time INR 1.12 0.9-1.15 Activated Partial Thromboplast Time 27.9 24.5-34.5 SEC Test 04/06/24 15:54 Range/Units Hemoglobin A1c 5.8 H <5.7 % A1C Lactic Acid Level 1.8 0.4-2.0 mmol/L Troponin I High Sensitivity < 3 L </=54 ng/L Lipase 24 12-53 U/L Thyroid Stimulating Hormone (TSH) 1.09 0.55-4.78 uIU/mL Imaging: CT abdomen pelvis IMPRESSION: 1. No acute abdominal or pelvic findings. Assessment: GI bleed Elevated LFTs History heavy alcohol Plan: Discussed with Dr. Hurst - Pt will be scheduled for colonoscopy tomorrow 04/08/2024. Pt was informed of the risks (bleeding, infection, perforation, reaction to sedation medications and cardiopulmonary arrest) and benefit and is agreeable to undergo the procedures. Hepatitis panel pending Monitor labs Abdominal ultrasound pending Discussed plan with patient and RN Thank you for this consult Date of Service: Apr 07, 2024 Billing Provider: ROSEANNA SERRA Common Visit Codes: CONSULT ONLY Consultation Codes: [id number] CONSULT <60MIN ROSEANNA SERRA Apr 07, 2024 12:23
--- NOTE | 2024-04-07 13:48 | DVH ---
EXAM: US GALLBLADDER CLINICAL HISTORY: transaminitis TECHNIQUE: Grayscale and limited color flow doppler ultrasound of the right upper quadrant is perfor med. COMPARISON: None Findings: Liver measures 19.7 cm in length with increased echotexture and contour. No evidence of focal hepatic lesions or intra- or extrahepatic ductal dilatation. Common bile duct not visualized. Normal hepatop edal flow noted within the portal vein. No perihepatic free fluid is noted. Gallbladder appears within normal limits with gallbladder wall thickness measuring 0.2 cm. No evidenc e of shadowing calculi, biliary sludge or pericholecystic fluid. Negative sonographic Gleason's sign. Pancreas not well-visualized due to overlying bowel gas. Right kidney measures 12.2 cm with normal contours, echotexture and cortical thickness. No evidence o f hydronephrosis, calculi, cystic or solid renal lesions. Partially visualized inferior vena cava unremarkable. Impression: 1. No evidence of acute right upper quadrant abnormalities. 2. Hepatomegaly with hepatic steatosis. 3. Common bile duct and pancreas not well visualized.
[2024-04-07 14:39] LABS: Hepatitis B Core Total AB Negative (Negative)
[2024-04-07 15:57] LABS: Hepatitis A Total Antibody Positive (Negative)
[2024-04-07 15:58] LABS: Hepatitis B Surface Antibody Positive (Negative); Hepatitis B Surface Antigen Negative (Negative); Hepatitis C Antibody Negative (Negative)
[2024-04-07] MEDS ORDERED: cefTRIAXone 1GM/50ML D5W 50 ML IV SCH (21:00)
[2024-04-08] VITALS (7 sets, daily range): BP systolic 103–128; BP diastolic 54–79; PULSE 75–100; RESP 18–24; TEMP 37.2; O2SAT 92–99
[2024-04-08] MEDS: MAGNESIUM CITRATE SOLUTION 300 ML BTL PO ONE (05:29)
[2024-04-08] MEDS ORDERED: GOLYTELY 4L KIT PO ONE (06:00)
[2024-04-08 06:02] LABS: Basophils # (auto) 0 10 ^3/uL (0-0.2); Basophils % (auto) 0.5 % (0.0-2.0); Eosinophils # (auto) 0.2 10 ^3/uL (0-0.8); Eosinophils % (auto) 3.5 % (0.0-7.0); Hematocrit 41.9 % (41.0-53.0); Hemoglobin 14.3 g/dL (13.5-17.5); Lymphocytes # (auto) 1.5 10 ^3/uL (0.4-5.4); Lymphocytes % (auto) 22.9 % (10.0-50.0); Mean Corpuscular Hemoglobin 30.4 pg (28.0-32.0); Mean Corpuscular Hgb Conc. 34.1 g/dL (32.0-36.0); Mean Corpuscular Volume 89.3 fL (80.0-100.0); Monocytes # (auto) 0.5 10 ^3/uL (0-1.3); Monocytes % (auto) 7.9 % (0.0-12.0); Neutrophils # (auto) 4.3 10 ^3/uL (1.6-8.6); Neutrophils % (auto) 65.2 % (37.0-80.0); Nucleated Red Blood Cells % 0.1 %; Platelet Count (auto) 210 10^3/uL (140-450); Red Blood Cells 4.69 10^6/uL (4.5-5.90); Red Cell Distribution Width 13.1 % (11.8-14.3); White Blood Cell 6.6 10^3/uL (4.4-10.8)
[2024-04-08 06:09] LABS: Calcium 9.3 mg/dL (8.7-10.4); Chloride 109 mmol/L (98-107); Potassium 3.7 mmol/L (3.5-5.1); Sodium 139 mmol/L (136-145)
[2024-04-08 06:10] LABS: Anion Gap 5 (5-15); Carbon Dioxide 25 mmol/L (20-31)
[2024-04-08 06:15] LABS: Blood Urea Nitrogen 7 mg/dL (9-23); Glucose 108 mg/dL (74-106)
[2024-04-08] MEDS ORDERED: ERGOCALCIFEROL 50,000 UNIT(1.25MG) CAP PO SCH (10:15)
[2024-04-08] MEDS ORDERED: fentaNYL CITRATE 100 MCG/2 ML VL ONE (13:30)
[2024-04-08] MEDS ORDERED: MIDAZOLAM HCL 2MG/2ML 2ml VIAL (1mg/ml) ONE (13:30)
[2024-04-08] MEDS ORDERED: MEPERIDINE HCL (25 MG/ML) 1ML VIAL ONE (13:30)
[2024-04-08] MEDS ORDERED: DexAMETHasone SOD PHOS 10MG/1ML VIAL INJ ONE (13:38)
--- NOTE | 2024-04-08 13:58 | DVHOP2 ---
Operative Report DATE OF OPERATION: 04/08/24 PROCEDURE: Colonoscopy with snare polypectomy. PREOPERATIVE INDICATION: The patient is a 33 -year-old male undergoing colonoscopy for evaluation of rectal bleeding POSTOPERATIVE DIAGNOSES: 1. Patient had 1+ internal hemorrhoids with some superficial oozing noted 2. There was a 2 mm benign-appearing rectal polyp that was seen and removed by cold biopsy forceps 3. There was a 3-4 mm benign-appearing descending colon polyp that was seen and removed by snare polypectomy 4. Otherwise essentially completely normal colonoscopy examination up to the cecum and terminal ileum with no active bleeding at this time PROCEDURE PERFORMED BY: Guillermo Hurst M.D. SCOPE: Olympus videocolonoscope. ASA CLASS: 2. PREOPERATIVE MEDICATIONS: Dr.Kakkes Sara PROCEDURE IN DETAIL: After obtaining an informed consent, the patient was placed on left lateral decubitus position. He was then sedated with the above medications. A rectal examination was performed that was normal. The colonoscope was then passed through the anus into the rectosigmoid and through the descending, transverse, and ascending colon up to the cecum with visualization of the appendiceal orifice, base of the cecum and the ileocecal valve. The colonoscope was then withdrawn. No masses or colitis was noted Patient had a two 3-4 mm benign-appearing descending colon polyp that was seen and removed by snare polypectomy Patient had mild scattered diverticular disease most prominent in the sigmoid Patient had a 2 mm benign-appearing rectal polyp that was seen and removed via cold biopsy forceps On retroflexion he had 1+ internal hemorrhoids with some superficial oozing The patient tolerated the procedure well without difficulty. WITHDRAWAL TIME: 9 minutes QUALITY OF THE PREP: [place] Bowel Prep score: 9. COMPLICATIONS : None SPECIMENS: Descending colon polyp Rectal polyp DISPOSITION: Transfer back to the floor Stable PLAN: 1. Repeat colonoscopy base on biopsy result likely in 3-5 years 2. Resume GI soft diet advance as tolerated 3. Increase fluid and fiber intake 4. Local anorectal hemorrhoidal care try Anusol hemorrhoidal suppositories 5. Outpatient follow up with me in 2-4 weeks to review results and discuss further management GUILLERMO HURST MD Apr 08, 2024 13:58
[2024-04-08] MEDS ORDERED: PROPOFOL 10 MG/ML 20 ML IV ONE (14:28)
[2024-04-08] MEDS ORDERED: HYDR25SU13 RE (17:17)
--- NOTE | 2024-04-08 17:26 | DVHDSRES ---
Discharge Summary Date of Admission Resident Creating Document: DON LEACH RESIDENT Apr 06, 2024 at 21:17 Date of Discharge: Apr 08, 2024 Admitting Diagnosis Hematochezia Labs/Diagnostic Data: Laboratory Results Test 04/08/24 05:29 04/07/24 10:24 04/07/24 06:20 04/07/24 01:12 White Blood Count 6.6 10^3/uL (4.4-10.8) Red Blood Count 4.69 10^6/uL (4.5-5.90) Hemoglobin 14.3 g/dL (13.5-17.5) Hematocrit 41.9 % (41.0-53.0) Mean Corpuscular Volume 89.3 fL (80.0-100.0) Mean Corpuscular Hemoglobin 30.4 pg (28.0-32.0) Mean Corpuscular Hemoglobin Concent 34.1 g/dL (32.0-36.0) Red Cell Distribution Width 13.1 % (11.8-14.3) Platelet Count 210 10^3/uL (140-450) Mean Platelet Volume 7.7 fL (6.9-10.8) Neutrophils (%) (Auto) 65.2 % (37.0-80.0) Lymphocytes (%) (Auto) 22.9 % (10.0-50.0) Monocytes (%) (Auto) 7.9 % (0.0-12.0) Eosinophils (%) (Auto) 3.5 % (0.0-7.0) Basophils (%) (Auto) 0.5 % (0.0-2.0) Neutrophils # (Auto) 4.3 10 ^3/uL (1.6-8.6) Lymphocytes # (Auto) 1.5 10 ^3/uL (0.4-5.4) Monocytes # (Auto) 0.5 10 ^3/uL (0-1.3) Eosinophils # (Auto) 0.2 10 ^3/uL (0-0.8) Basophils # (Auto) 0 10 ^3/uL (0-0.2) Nucleated Red Blood Cells 0.1 % Sodium Level 139 mmol/L (136-145) Potassium Level 3.7 mmol/L (3.5-5.1) Chloride Level 109 mmol/L (98-107) Carbon Dioxide Level 25 mmol/L (20-31) Anion Gap 5 (5-15) Blood Urea Nitrogen 7 mg/dL (9-23) Creatinine 0.78 mg/dL (0.700-1.30) Glomerular Filtration Rate Calc 121 mL/min (>90) BUN/Creatinine Ratio 9.0 (10.0-20.0) Serum Glucose 108 mg/dL (74-106) Calcium Level 9.3 mg/dL (8.7-10.4) Magnesium Level 2.2 mg/dL (1.6-2.6) Stool Occult Blood Positive (Negative) Stool Occult Blood Sample #3 (Negative) Total Bilirubin 1.2 mg/dL (0.2-1.0) Aspartate Amino Transferase (AST) 102 U/L (13-40) Alanine Aminotransferase (ALT) 147 U/L (7-40) Alkaline Phosphatase 125 U/L (46-116) Total Protein 6.6 g/dL (5.7-8.2) Albumin 3.8 g/dL (3.2-4.8) Carcinoembryonic Antigen < 0.50 ng/mL (<=5.0) Vitamin B12 Level 461 pg/mL (211-911) Vitamin D 25-Hydroxy 17.3 ng/mL (30.0-100) HIV (1&2) Antibody Negative (Negative) Urine Color Yellow (Yellow) Urine Clarity Turbid (Clear) Urine pH 6.0 (5.0-9.0) Urine Specific [place] 1.027 (1.001-1.035) Urine Protein Trace (Negative) Urine Ketones Negative (Negative) Urine Blood Negative /uL (Negative) Urine Nitrite Negative (Negative) Urine Bilirubin Negative (Negative) Urine Urobilinogen 2 mg/dL (Negative) Urine Leukocyte Esterase Negative /uL (Negative) Urine RBC 1 /hpf (0 - 3) Urine WBC 4 /hpf (0 - 3) Urine Squamous Epithelial Cells None seen /hpf (<5) Urine Bacteria None seen /hpf (None Seen) Urine Mucus Many (None Seen) Urine Glucose Normal mg/dL (Normal) Urine Opiates Screen Neg (NEGATIVE) Urine Fentanyl Screen Neg (NEGATIVE) Urine Barbiturates Screen Neg (NEGATIVE) Urine Phencyclidine Screen Neg (NEGATIVE) Urine Amphetamines Screen Neg (NEGATIVE) Urine Benzodiazepines Screen Neg (NEGATIVE) Urine Cocaine Screen Neg (NEGATIVE) Urine Cannabinoids Screen Neg (NEGATIVE) Test 04/06/24 21:44 04/06/24 15:54 Prothrombin Time 11.8 sec (9.3-11.8) Prothrombin Time INR 1.12 (0.9-1.15) Activated Partial Thromboplast Time 27.9 SEC (24.5-34.5) Hemoglobin A1c 5.8 % A1C (<5.7) Lactic Acid Level 1.8 mmol/L (0.4-2.0) Troponin I High Sensitivity < 3 ng/L (</=54) Lipase 24 U/L (12-53) Thyroid Stimulating Hormone (TSH) 1.09 uIU/mL (0.55-4.78) Hepatitis A Antibody Total Positive (Negative) Hepatitis B Surface Antigen Negative (Negative) Hepatitis B Surface Antibody Positive (Negative) Hepatitis B Core Total Antibody Negative (Negative) Hepatitis C Antibody Negative (Negative) Other Laboratory Tests 04/08/24 05:29 Brief Hx & Hospital Course: This is a 33-year-old male patient with no reported past medical history who presented to the ER with a chief complaint of abdominal pain and rectal bleeding for the past 1.5 weeks. Patient reports right lower quadrant abdominal pain and burning which with the age to the back, is on and off and ongoing for the past 10 days associated with dyschezia/fever/chills/sweats/shaking/lightheadedness. He also says that he has been experiencing fresh red bleeding per rectum for around the past week, every time he goes to the bathroom. He has a bowel movement once every day which is formed, not loose. Reports blood in the bowel movements during the start and time-out. Denies melena/nausea/vomiting/weight loss/loss of appetite. Last reported bowel movement was around 8:00 a.m. 04/06, which was also full of fresh blood. Patient also reported that he experienced loss of consciousness for about a minute or 04/06 when he was undergoing a bowel movement, denies hitting his head or experiencing any falls. Patient has significant colon cancer family history in his brother at the age of 31 year, also in his uncle. He had a colonoscopy at the age of 7 years which showed some polyps but he does not remember the details. Patient has not seen a physician since 2008. Patient is Ex-smoker, quit 4 months back-smoked a pack a day for the past 10 years. Currently patient vapes. Reports being a heavy drinker, has been sober for the past 2 years . Reports substance use back in 2007 During hospital workup, Rectal exam performed, patient had lot of tenderness, no hemorrhoids seen or felt, no active bleeding. No masses or prostatomegaly. FOBT positive. Patient was started on IV ceftriaxone and metronidazole starting 04/07 given the possibility of colitis along with IV Protonix 40 mg b.i.d. and clear liquid diet. Lactic acid 1.8. Prelim blood culture negative for any growth. Given the significant family history. GI consulted, was scheduled for colonoscopy 04/08-which shows internal hemorrhoids, and therefore patient is being discharged home with the advice to follow GI outpatient and taking soft diet, avoiding constipation and straining. Advice for increasing fluid and fiber intake. Local anorectal hemorrhoidal care. Colonoscopy also revealed 2 mm benign-appearing rectal polyps which were removed by cold biopsy forceps, 3-4 mm benign descending colon polyps that were seen and removed. Otherwise normal colonoscopy up to the cecum and terminal ileum. Patient also had presyncope for which he underwent head CT which was unremarkable for acute intracranial process. Lab workup also showed transaminitis secondary to probably former alcohol use, AST/ALT were trending down. He was also diagnosed with prediabetes mellitus hemoglobin A1c was 5.8 and therefore he was counseled regarding healthy lifestyle habits for more than 10 minutes. 04/08/2024-patient was clinically stable, hemodynamically stable, no acute distress. Therefore he is being discharged home with the recommendation to follow GI to follow up on biopsy results and repeat colonoscopy in 3-5 years and his primary care physician within 7-14 days. Patient is discharged on hydrocortisone acetate 25 mg suspension for the next 30 days. Examination Young obese male patient lying in bed, in no acute distress General: Obese, afebrile, palor, mucosae are moist Cardiovascular: Regular S1 and S2. No murmurs, gallops or rubs. No JVD elevation. No pedal edema Respiratory: Normal B/L air entry on room air. Clear lung sounds on auscultation Abdomen: Soft, nontender, nondistended, normoactive bowel sounds, no rebound tenderness, no organomegaly, no masses. Buttocks punctate erythematous points. Rectal exam performed, patient had lot of tenderness, no hemorrhoids seen or felt, no active bleeding. No masses or prostatomegaly. Genitourinary: Deferred MSK/skin: Mobilizes 4 limbs. Skin is dry and warm Neurological: No motor, no sensitive deficits, normal speech. Pupils are isocoric and reactive. Psych/Mental Status: A/Ox4 Consults/Reason for consult Gi consulted for hematochezia Operations or Procedures ORDERING PHYSICIAN: DARRIAN MACDONALD PROCEDURE(s): GBUS - GALLBLADDER REASON: transaminitis ORDER NUMBER(s): [id number], ACCESSION NUMBER(s): [id number] EXAM: US GALLBLADDER CLINICAL HISTORY: transaminitis TECHNIQUE: Grayscale and limited color flow doppler ultrasound of the right upper quadrant is performed. COMPARISON: None Findings: Liver measures 19.7 cm in length with increased echotexture and contour. No evidence of focal hepatic lesions or intra- or extrahepatic ductal dilatation. Common bile duct not visualized. Normal hepatopedal flow noted within the portal vein. No perihepatic free fluid is noted. Gallbladder appears within normal limits with gallbladder wall thickness measuring 0.2 cm. No evidence of shadowing calculi, biliary sludge or pericholecystic fluid. Negative sonographic Gleason's sign. Pancreas not well-visualized due to overlying bowel gas. Right kidney measures 12.2 cm with normal contours, echotexture and cortical thickness. No evidence of hydronephrosis, calculi, cystic or solid renal lesions. Partially visualized inferior vena cava unremarkable. Impression: 1. No evidence of acute right upper quadrant abnormalities. 2. Hepatomegaly with hepatic steatosis. 3. Common bile duct and pancreas not well visualized. RING PHYSICIAN: DARRIAN MACDONALD PROCEDURE(s): HWOCT - HEAD WITHOUT CONTRAST REASON: syncope ORDER NUMBER(s): [id number], ACCESSION NUMBER(s): [id number] EXAM: CT HEAD WITHOUT CONTRAST HISTORY: syncope COMPARISON: None TECHNIQUE: Axial images were obtained and reformatted in coronal and sagittal planes. All CT scans at this medical facility are performed using dose modulation techniques as appropriate to a performed exam including the following: Automated exposure control was utilized; adjustment of the MA and/or KV according to patient size; and use of iterative reconstruction technique. CT Dose: CTDI volume is 63.24 mGy. Dose-length product is 1139.96 mGy*cm FINDINGS: There is no evidence of acute intracranial hemorrhage, mass, mass effect midline shift. There is no hydrocephalus or extra-axial fluid collection. Dow white matter diffeerentiation appears appropriate. The visualized paranasal sinuses and mastoid air cells are clear. The calvarium is intact. IMPRESSION: 1. No acute intracranial process. HS:Y ATED BY: LUIS F CASAREZ MD DICTATED DATE/TIME: 04/07/241138 SIGNED BY: LUIS F CASAREZ MD SIGNED DATE/TIME: 04/07/241138 CC: ORDERING PHYSICIAN: JAKE MORLEY PROCEDURE(s): CXRP - CHEST PORTABLE REASON: chest pain ORDER NUMBER(s): [id number], ACCESSION NUMBER(s): [id number] EXAM: XY CHEST PORTABLE CLINICAL HISTORY: chest pain TECHNIQUE: Single AP view of the chest WID: COMPARISON: None FINDINGS: Lines and tubes: None Chest: The heart size and pulmonary vasculature is within normal limits. No pleural effusion, pneumothorax, or consolidation. The osseous structures are grossly intact. IMPRESSION: No acute cardiopulmonary abnormality. ATED BY: BREANA GODOY MD DICTATED DATE/TIME: 04/07/24209 SIGNED BY: BREANA GODOY MD SIGNED DATE/TIME: 04/07/24209 CC: ORDERING PHYSICIAN: GAVINO RAE DO PROCEDURE(s): ABPL - CT AB PEL WO CON-NO ORAL OR IV REASON: fever/abd pain/rectal bleed ORDER NUMBER(s): [id number], ACCESSION NUMBER(s): [id number] Exam: CT CT AB PEL WO CON-NO ORAL OR IV History: fever/abd pain/rectal bleed Comparison Study: None Technique: Multidetector spiral CT of the abdomen and pelvis was performed from lung bases to pubic symphysis. Imaging was performed without IV contrast. Axial, coronal and sagittal multiplanar reformats were obtained from the axial data set by the technologist. Radiation dose : Abdomen/Pelvis: CTDIvol 23.87 mGy, DLP 1685.38 mGy*cm. Findings: Evaluation of solid organs is limited due to lack of intravenous contrast use. Lung Bases: No acute or significant lung base finding. Normal heart size. No pleural or pericardial effusion. Liver: The liver is normal in size. No focal lesions. Gallbladder and biliary Tree: Unremarkable Spleen: Unremarkable Pancreas: The pancreas is grossly normal in appearance. Adrenal Glands: Unremarkable Kidneys: Kidneys are grossly normal without calculi or hydronephrosis. Bladder: Grossly unremarkable for degree of distention. Bowel: The stomach is grossly normal in appearance. Small bowel and colon are normal in caliber and distribution. Normal appendix is visualized in the right lower quadrant without findings of appendicitis. Ascites: Absent Lymphadenopathy: No mesenteric, retroperitoneal or periportal lymphadenopathy. Abdominal wall and Mesentery: Unremarkable. Vasculature: The visualized abdominal aorta is normal in size and caliber. Evaluation of abdominal and pelvic vessels is limited due to lack of intravenous contrast. Pelvic Organs: Unremarkable Musculoskeletal: No aggressive focal bony lesions, acute fractures or dislocation. IMPRESSION: 1. No acute abdominal or pelvic findings. Radiation optimization: All CT scans at this facility use at least one of these dose optimization techniques: Automated exposure control mA and/or kV adjustment per patient size (includes targeted exams where dose is matched to clinical indication) or iterative reconstruction. 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 Prediabetes mellitus A1c 5.8 Vitamin-D deficiency Chronic alcoholic and nicotine dependence Former polysubstance use-counseled regarding cessation for more than 20 minutes Discharge Disposition: Home Discharge Instruct/Medications Diet: See Comment Diet comment: Soft mechanical diet Activity: Light activity Follow Up/Referral: Follow up with shell sieve operator outpatient in 7-14 days Follow up with primary care physician in 7-14 days Medications: Per EMR Discharge Statement: "Patient was advised to return to the ER or call 911 if any headaches, dizziness, shortness of breath, chest pain, abdominal pain, bleeding, fevers, or worsening of medical condition. Patient was counseled about treatment plan, medications, possible side effects, patientverbalized understanding. All questions were answered to the best of my ability. This discharge took greater then 30 minutes in planning, reviewing documentation, counseling the patient, and discussing with other team members." ASSESSMENT ASSESSMENT Assessment Hematochezia secondary to internal hemorrhoids Date of Service: Apr 08, 2024 Billing Provider: SALOMON MARIE MD Common Visit Codes: 50898-KBL/OBS DISCH DAY >30min DON LEACH Apr 08, 2024 17:26 SALOMON MARIE MD Apr 10, 2024 19:55
[2024-04-08] MEDS: ERGOCALCIFEROL 50,000 UNIT(1.25MG) CAP PO SCH (17:50)
[2024-04-08] MEDS: POTASSIUM EFFERVESENT TAB 25 MEQ PO ONE (17:50)
[2024-04-08] MEDS: HYDROCORTISONE ACET 25 MG RECTAL SUPP PR ONE (17:51)
[2024-04-09] MEDS ORDERED: HYDR25SU13 RE (09:29)
== END 2024-04-08 20:10 | disposition home or self-care (01) | DRG 720 ==
LOC: ER 14:47 → OVERFLOW 21:17 → EAST 04-07 02:40
PROVIDERS: ADMIT Hospitalist; ATTEND Hospitalist
PROC: 0DBP8ZX Excision of Rectum, Via Natural or Artificial Opening Endoscopic, Diagnostic (ICD-10-PCS; 2024-04-08)
PROC: 0DBM8ZZ Excision of Descending Colon, Via Natural or Artificial Opening Endoscopic (ICD-10-PCS; principal; 2024-04-08 13:21)
DX: A41.9 Sepsis, unspecified organism (principal); E88.89 Other specified metabolic disorders; K76.0 Fatty (change of) liver, not elsewhere classified; E55.9 Vitamin D deficiency, unspecified; K52.9 Noninfective gastroenteritis and colitis, unspecified; E80.6 Other disorders of bilirubin metabolism; R74.01 Elevation of levels of liver transaminase levels; K62.1 Rectal polyp; K63.5 Polyp of colon; F10.20 Alcohol dependence, uncomplicated; K64.8 Other hemorrhoids; F17.290 Nicotine dependence, other tobacco product, uncomplicated; K57.30 Diverticulosis of large intestine without perforation or abscess without bleeding; Z80.0 Family history of malignant neoplasm of digestive organs; Y90.9 Presence of alcohol in blood, level not specified
CPT/HCPCS: 36415; 70450; 71045; 74176; 76705; 80048; 80053; 80307; 81001; 82270; 82306; 82378; 82607; 83036; 83605; 83690; 83735; 84443; 84484; 85025; 85610; 85730; 86703; 86704; 86706; 86708; 86803; 86850; 86900; 86901; 87040; 87340; G0378; J1100; J2250; J2405; J2470; J2704; J3490